=== PATIENT | male | born 1960 ===

== ENCOUNTER 2017-12-03 02:48 | Emergency (ER) | payer SELFPAY ==
[~2017-12-03] VITALS: Ht 188 cm; Wt 72.7 kg
--- NOTE | 2017-12-03 03:25 | NUR ---
BREATHING TREATMENT GIVEN. BREATHING TECH. FOR GOOD DEPOSITION TO THE LUNGS.
[2017-12-03 03:29] LABS: HEMATOCRIT 40.1 % (39.0-50.0); HEMOGLOBIN 12.7 g/dl (14.0-18.0); IMMATURE GRANULOCYTES 0.3 % (0.0-1.0); MEAN CELL VOLUME 98.5 fL CALC (80.0-100.0); MEAN CORPUSCULAR HGB 31.2 pG CALC (26.0-32.0); MEAN CORPUSCULAR HGB CONC 31.7 g/L CALC (32.0-36.0); NEUT# 3.19 thou/uL (1.82-7.42); RED BLOOD COUNT 4.07 mill/uL (4.70-6.10); RED CELL DISTRI WIDTH 13.1 % (11.5-15.5); URINE BILIRUBIN - DIPSTICK NEGATIVE (NEGATIVE); URINE BLOOD DIPSTICK NEGATIVE (NEGATIVE); URINE COLOR YELLOW; URINE GLUCOSE - DIPSTICK NEGATIVE (NEGATIVE); URINE KETONE NEGATIVE (NEGATIVE); URINE LEUK ESTERASE NEGATIVE (NEGATIVE); URINE NITRITE - DIPSTICK NEGATIVE (Negative); URINE PROTEIN - DIPSTICK TRACE mg/dL (NEG-TRACE); URINE SPECIFIC GRAVITY 1.025
[2017-12-03 03:31] LABS: URINE CLARITY CLEAR
[2017-12-03 03:38] LABS: ALBUMIN 4.3 g/dL (3.2-5.0); ALKALINE PHOSPHATASE 114 u/l (38-126); ANION GAP 16 (6-22 (CALC)); BILIRUBIN, TOTAL 0.9 mg/dL (0.0-1.4); BUN 23 mg/dL (9-20); BUN/CREATININE RATIO 16 (12-20 (CALC)); CALCIUM 9.5 mg/dL (8.4-10.2); CARBON DIOXIDE 22 mmol/l (22-30); CHLORIDE 112 mmol/l (95-108); CREATININE 1.4 mg/dL (0.7-1.3); GFR 52 ML/MIN (>=60 (CALC)); GFR FOR AFR.AMER. > 60 ML/MIN (>=60 (CALC)); GLUCOSE 90 mg/dL (75-110); LIPASE 94 u/l (23-300); POTASSIUM 4.4 mmol/l (3.5-5.1); SGOT/AST 92 u/l (17-59); SGPT/ALT 84 u/l (21-72); SODIUM 145 mmol/l (137-146); TOTAL PROTEIN 7.8 g/dL (6.3-8.2)
[2017-12-03] MEDS ORDERED: PREDNISONE50 MG PO (05:31)
[2017-12-03] MEDS ORDERED: LASIX 40 MG TAB40 MG PO (05:31)
[2017-12-03] MEDS ORDERED: ZPAK PO (05:31)
[2017-12-03] MEDS ORDERED: PROAIR HFA108 MCG/AC PO (05:34)
[2017-12-03 06:00] VITALS: BP 152/96
== END 2017-12-03 06:00 | disposition home or self-care (01) | DRG 192 ==
LOC: ED 02:48
PROVIDERS: Family Medicine
DX: J44.1 Chronic obstructive pulmonary disease with (acute) exacerbation (principal); I50.9 Heart failure, unspecified; F17.210 Nicotine dependence, cigarettes, uncomplicated; R06.02 Shortness of breath; R06.2 Wheezing; R10.84 Generalized abdominal pain; R05 Cough

== ENCOUNTER 2022-02-26 08:49 | Day surgery (SDC) | payer MEDICARE ==
[~2022-02-26] VITALS: Ht 185.4 cm; Wt 82.1 kg
[~2022-02-26 08:49] MED LIST: ASPIRIN 81 LOW81 MG; CENTRUM PO; ENTRESTO 24-261 TAB PO; ENTRESTO 97-1031 TAB; EPLERENONE25 MG PO; KAPSPARGO SPRI100 MG; LASIX 40 MG TAB40 MG PO; LIPITOR40 M1 PO; PREDNISONE50 MG PO; PROAIR HFA108 MCG/AC PO; TACTINAL325 MG PO; VITAMIN B 12100 MCG PO; ZPAK PO
[2022-02-26] MEDS ORDERED: METOPROLOL100 M1 PO (09:09)
[2022-02-26 12:31] VITALS: BP 162/86
== END 2022-02-26 11:45 | disposition home or self-care (01) ==
LOC: ENDO 08:49
PROVIDERS: ATTEND Surgery
PROC: 0DJD8ZZ Inspection of Lower Intestinal Tract, Via Natural or Artificial Opening Endoscopic (ICD-10-PCS; principal; 2022-02-26)
DX: Z12.11 Encounter for screening for malignant neoplasm of colon (principal); N18.9 Chronic kidney disease, unspecified; I50.9 Heart failure, unspecified; F17.200 Nicotine dependence, unspecified, uncomplicated; Z95.0 Presence of cardiac pacemaker
CPT/HCPCS: G0121